=== PATIENT | male | born 1945 | race Caucasian/White ===

== ENCOUNTER 2024-09-06 12:15 | Inpatient (IN) | payer MEDICARE, BC ==
[~2024-09-06] VITALS: Ht 175.3 cm; Wt 67.1 kg
[2024-09-06 12:52] LABS: BASOPHILS # (AUTO) 0.1 K/uL (0.0-0.2); BASOPHILS % (AUTO) 0.8 % (0.0-2.0); EOSINOPHILS # (AUTO) 0.1 K/uL (0.0-0.7); HEMATOCRIT 47 % (39-51); HEMOGLOBIN 15.7 g/dL (13.5-17.5); LYMPHOCYTES # (AUTO) 1.2 K/uL (0.8-4.8); LYMPHOCYTES % (AUTO) 16.4 % (20.0-44.0); MEAN CORPUSCULAR HEMOGLOBIN 31 PG (26.0-33.0); MEAN CORPUSCULAR HGB CONC 34 g/dl (31.0-36.0); MEAN CORPUSCULAR VOLUME 91 fL (80-96); MONOCYTES # (AUTO) 0.9 K/uL (0.1-1.30); MONOCYTES % (AUTO) 12.5 % (2.0-12.0); NEUTROPHILS # (AUTO) 4.9 K/uL (1.8-8.9); NEUTROPHILS % (AUTO) 68.3 % (43.0-81.0); PLATELET COUNT (AUTO) 298 K/uL (150-450); RED BLOOD CELL COUNT(AUTO) 5.11 MIL/uL (4.5-6.0); RED CELL DISTRIBUTION WIDTH 14.3 % (11.5-15.0); WHITE BLOOD COUNT (AUTO) 7.2 K/uL (4.3-11.0)
[2024-09-06 13:08] LABS: ALANINE AMINOTRANSFERASE 18 U/L (12-78); ALBUMIN 2.8 g/dL (3.4-5.0); ALCOHOL, BLOOD < 3 mg/dL (0-10); ALKALINE PHOSPHATASE 77 U/L (46-116); ASPARTATE AMINOTRANSFERASE 17 U/L (15-37); BILIRUBIN,DIRECT 0.1 mg/dL (0.0-0.2); BILIRUBIN,TOTAL 0.5 mg/dL (0.2-1.0); CALCIUM, SERUM 9.7 mg/dL (8.5-10.1); CARBON DIOXIDE 32 mmol/L (21-32); CHLORIDE 109 mmol/L (98-107); CREATININE 0.9 mg/dL (0.6-1.3); GLUCOSE 90 mg/dL (74-106); POTASSIUM 4.2 mmol/L (3.5-5.1); SODIUM SERUM 146 mmol/L (136-145); TOTAL PROTEIN, SERUM 7.4 g/dL (6.4-8.2); UREA NITROGEN, BLOOD 23 mg/dL (7-18)
[2024-09-06 13:42] LABS: ACETAMINOPHEN <10 ug/ml (10-30)
[2024-09-06] MEDS ORDERED: MAGNESIUM HYDROXIDE 30 ML UDC PO PRN (16:30)
[2024-09-06] MEDS ORDERED: MAG HYDROX/AL HYDROX/SIMETH 30 ML UDC PO PRN (16:30)
[2024-09-06] MEDS ORDERED: LORAZEPAM 0.5 MG TABLET PO PRN (16:30)
[2024-09-06] MEDS ORDERED: LOSA50TA39 PO (17:39)
[2024-09-06] MEDS ORDERED: BUSP5TAB3 PO (17:39)
[2024-09-06] MEDS ORDERED: DIVA125C5 PO (17:39)
[2024-09-06] MEDS ORDERED: HALO1TAB PO (17:39)
[2024-09-06] MEDS ORDERED: AMLO-212 PO (17:39)
[2024-09-06] MEDS ORDERED: FINA1TAB11 PO (17:39)
[2024-09-06 20:17] VITALS: BP 108/84; TEMP 98.1; O2SAT 95
[2024-09-07] MEDS: TEMAZEPAM 7.5 MG CAPSULE PO PRN ×2 (00:18→22:14)
[2024-09-07 08:00] VITALS: BP 107/66; TEMP 97.8; O2SAT 97
[2024-09-07] MEDS: AMLODIPINE BESYLATE 5 MG TABLET PO SCH (09:00)
[2024-09-07] MEDS: LOSARTAN POTASSIUM 50 MG TABLET PO SCH (09:00)
[2024-09-07] MEDS ORDERED: QUETIAPINE FUMARATE 25 MG TABLET PO PRN (10:30)
[2024-09-07 10:33] LABS: CHOLESTEROL 168 mg/dL (<200); HDL CHOLESTEROL 39 mg/dL (40-60); LDL 114 mg/dL (0-99); TRIGLYCERIDES 60 mg/dL (30-150)
[2024-09-07 10:34] LABS: ALANINE AMINOTRANSFERASE 23 U/L (12-78); ALKALINE PHOSPHATASE 76 U/L (46-116); ASPARTATE AMINOTRANSFERASE 15 U/L (15-37); BILIRUBIN,TOTAL 0.5 mg/dL (0.2-1.0); CALCIUM, SERUM 9.9 mg/dL (8.5-10.1); CARBON DIOXIDE 32 mmol/L (21-32); CHLORIDE 110 mmol/L (98-107); CREATININE 1.5 mg/dL (0.6-1.3); GLUCOSE 144 mg/dL (74-106); POTASSIUM 4.2 mmol/L (3.5-5.1); SODIUM SERUM 146 mmol/L (136-145); TOTAL PROTEIN, SERUM 7.6 g/dL (6.4-8.2); UREA NITROGEN, BLOOD 32 mg/dL (7-18)
[2024-09-07] MEDS: DIVALPROEX SODIUM 125 MG CAP.SPRINK PO SCH (13:15)
[2024-09-07 16:00] VITALS: BP 118/74; TEMP 96.6; O2SAT 99
[2024-09-07 20:00] VITALS: BP 118/88; TEMP 98; O2SAT 95
[2024-09-07] MEDS: QUETIAPINE FUMARATE 25 MG TABLET PO SCH (20:40)
[2024-09-08 08:00] VITALS: BP 103/72; TEMP 97.7; O2SAT 96
[2024-09-08] MEDS: FINASTERIDE 1 MG PO SCH (08:18)
[2024-09-08 10:52] LABS: THYROID STIMULATING HORMONE 1.67 uIU/mL (0.358-3.74)
[2024-09-08 11:06] LABS: BASOPHILS # (AUTO) 0.1 K/uL (0.0-0.2); BASOPHILS % (AUTO) 0.8 % (0.0-2.0); EOSINOPHILS # (AUTO) 0.3 K/uL (0.0-0.7); EOSINOPHILS % (AUTO) 3.5 % (0.0-6.0); HEMATOCRIT 43 % (39-51); HEMOGLOBIN 14.6 g/dL (13.5-17.5); LYMPHOCYTES # (AUTO) 1.7 K/uL (0.8-4.8); LYMPHOCYTES % (AUTO) 23.3 % (20.0-44.0); MEAN CORPUSCULAR HEMOGLOBIN 31 PG (26.0-33.0); MEAN CORPUSCULAR HGB CONC 34 g/dl (31.0-36.0); MEAN CORPUSCULAR VOLUME 90 fL (80-96); MONOCYTES # (AUTO) 0.8 K/uL (0.1-1.30); MONOCYTES % (AUTO) 10.4 % (2.0-12.0); NEUTROPHILS # (AUTO) 4.6 K/uL (1.8-8.9); PLATELET COUNT (AUTO) 268 K/uL (150-450); RED CELL DISTRIBUTION WIDTH 14.2 % (11.5-15.0); WHITE BLOOD COUNT (AUTO) 7.4 K/uL (4.3-11.0)
[2024-09-08 11:22] LABS: ALANINE AMINOTRANSFERASE 20 U/L (12-78); ALBUMIN 2.9 g/dL (3.4-5.0); ALKALINE PHOSPHATASE 74 U/L (46-116); ASPARTATE AMINOTRANSFERASE 25 U/L (15-37); BILIRUBIN,TOTAL 0.6 mg/dL (0.2-1.0); CALCIUM, SERUM 9.7 mg/dL (8.5-10.1); CARBON DIOXIDE 27 mmol/L (21-32); CHLORIDE 108 mmol/L (98-107); CREATININE 1.3 mg/dL (0.6-1.3); GLUCOSE 114 mg/dL (74-106); MAGNESIUM 2.3 mg/dL (1.8-2.4); PHOSPHORUS 2.6 mg/dL (2.5-4.9); POTASSIUM 4.3 mmol/L (3.5-5.1); SODIUM SERUM 144 mmol/L (136-145); TOTAL PROTEIN, SERUM 7.4 g/dL (6.4-8.2); UREA NITROGEN, BLOOD 37 mg/dL (7-18)
[2024-09-08 16:00] VITALS: BP 105/81; TEMP 97.7; O2SAT 100
[2024-09-08 20:00] VITALS: BP 117/80; TEMP 98; O2SAT 99
[2024-09-09 06:07] LABS: FOLIC ACID 8.2 ng/mL (>3.0)
[2024-09-09 07:24] LABS: BASOPHILS # (AUTO) 0.1 K/uL (0.0-0.2); BASOPHILS % (AUTO) 0.8 % (0.0-2.0); EOSINOPHILS # (AUTO) 0.3 K/uL (0.0-0.7); EOSINOPHILS % (AUTO) 4.2 % (0.0-6.0); HEMATOCRIT 38 % (39-51); HEMOGLOBIN 12.9 g/dL (13.5-17.5); LYMPHOCYTES % (AUTO) 25.7 % (20.0-44.0); MEAN CORPUSCULAR HEMOGLOBIN 31 PG (26.0-33.0); MEAN CORPUSCULAR HGB CONC 34 g/dl (31.0-36.0); MEAN CORPUSCULAR VOLUME 89 fL (80-96); MONOCYTES # (AUTO) 0.9 K/uL (0.1-1.30); MONOCYTES % (AUTO) 11.1 % (2.0-12.0); NEUTROPHILS # (AUTO) 4.5 K/uL (1.8-8.9); NEUTROPHILS % (AUTO) 58.2 % (43.0-81.0); PLATELET COUNT (AUTO) 227 K/uL (150-450); RED BLOOD CELL COUNT(AUTO) 4.23 MIL/uL (4.5-6.0); RED CELL DISTRIBUTION WIDTH 14.3 % (11.5-15.0); WHITE BLOOD COUNT (AUTO) 7.8 K/uL (4.3-11.0)
[2024-09-09 07:45] LABS: MAGNESIUM 1.9 mg/dL (1.8-2.4); PHOSPHORUS 2.4 mg/dL (2.5-4.9)
[2024-09-09 08:00] VITALS: BP 119/63; TEMP 97.6; O2SAT 95
[2024-09-09 10:42] LABS: EOSINOPHILS % (MANUAL) 3 % (0-4); LYMPHOCYTES % (MANUAL) 29 % (16-48); MONOCYTES % (MANUAL) 6 % (0-11.0); MYELOCYTES % 1 % (0-0); NEUTROPHILS % (MANUAL) 61 (42-76)
[2024-09-09 10:44] LABS: OVALOCYTES 1+; PLATELET ESTIMATE ADEQUATE
[2024-09-09 16:00] VITALS: BP 119/92; TEMP 97.9; O2SAT 95
[2024-09-09] MEDS: LORAZEPAM 0.5 MG TABLET PO PRN (16:20)
[2024-09-09 20:40] VITALS: BP 103/71; TEMP 98; O2SAT 100
[2024-09-10 08:00] VITALS: BP 113/77; TEMP 98.6; O2SAT 98
[2024-09-10] MEDS: Z GUARD REMEDY 4 OZ OINT TP PRN (08:32)
[2024-09-10] MEDS: ENSURE ENLIVE CHOC 237 ML CAN PO SCH (08:42)
[2024-09-10 16:00] VITALS: BP 119/76; TEMP 97.6; O2SAT 96
[2024-09-10] MEDS: DIVALPROEX SODIUM 125 MG CAP.SPRINK PO SCH (16:46)
[2024-09-10 20:00] VITALS: BP 131/81; TEMP 97.9; O2SAT 99
[2024-09-11 08:00] VITALS: BP 69/58; TEMP 98.1; O2SAT 95
[2024-09-11 16:00] VITALS: BP 115/85; TEMP 98.2; O2SAT 100
[2024-09-11 20:33] VITALS: BP 135/78; TEMP 98.3; O2SAT 100
[2024-09-12 08:00] VITALS: BP 94/50; TEMP 97.7; O2SAT 99
[2024-09-12 14:11] LABS: VITAMIN B1 THIAMINE,WB 91.7 nmol/L (66.5-200.0)
[2024-09-12 16:00] VITALS: BP 98/63; TEMP 98.6; O2SAT 97
[2024-09-12 21:34] VITALS: BP 119/72; TEMP 98.2; O2SAT 100
[2024-09-13 08:00] VITALS: BP 114/71; TEMP 98.7; O2SAT 98
[2024-09-13] MEDS: DIVALPROEX SODIUM 125 MG CAP.SPRINK PO SCH (13:53)
[2024-09-13 16:00] VITALS: BP 121/83; TEMP 98.1; O2SAT 100
[2024-09-13 20:00] VITALS: BP 110/85; TEMP 97.7; O2SAT 95
[2024-09-13] MEDS: QUETIAPINE FUMARATE 25 MG TABLET PO SCH (20:01)
[2024-09-13] MEDS: ACETAMINOPHEN 325 MG TABLET PO PRN (20:56)
[2024-09-14 08:00] VITALS: BP 108/72; TEMP 97.7; O2SAT 97
[2024-09-14 16:00] VITALS: BP 107/72; TEMP 98.1; O2SAT 98
[2024-09-14] MEDS: OLANZAPINE 10 MG VIAL IM STA (17:44)
[2024-09-14 20:00] VITALS: BP 129/86; TEMP 98; O2SAT 98
[2024-09-14] MEDS: DIVALPROEX SODIUM 500 MG TABLET.DR PO SCH (20:13)
[2024-09-15 07:34] LABS: BASOPHILS # (AUTO) 0.1 K/uL (0.0-0.2); BASOPHILS % (AUTO) 1.3 % (0.0-2.0); EOSINOPHILS # (AUTO) 0.3 K/uL (0.0-0.7); EOSINOPHILS % (AUTO) 4.2 % (0.0-6.0); HEMATOCRIT 33 % (39-51); HEMOGLOBIN 11.1 g/dL (13.5-17.5); LYMPHOCYTES # (AUTO) 1.6 K/uL (0.8-4.8); LYMPHOCYTES % (AUTO) 24.9 % (20.0-44.0); MEAN CORPUSCULAR HEMOGLOBIN 30 PG (26.0-33.0); MEAN CORPUSCULAR HGB CONC 34 g/dl (31.0-36.0); MEAN CORPUSCULAR VOLUME 90 fL (80-96); MONOCYTES # (AUTO) 0.9 K/uL (0.1-1.30); MONOCYTES % (AUTO) 14.5 % (2.0-12.0); NEUTROPHILS # (AUTO) 3.5 K/uL (1.8-8.9); NEUTROPHILS % (AUTO) 55.1 % (43.0-81.0); PLATELET COUNT (AUTO) 292 K/uL (150-450); RED BLOOD CELL COUNT(AUTO) 3.64 MIL/uL (4.5-6.0); RED CELL DISTRIBUTION WIDTH 14.1 % (11.5-15.0); WHITE BLOOD COUNT (AUTO) 6.3 K/uL (4.3-11.0)
[2024-09-15 07:46] LABS: CALCIUM, SERUM 9.7 mg/dL (8.5-10.1); CARBON DIOXIDE 31 mmol/L (21-32); CHLORIDE 105 mmol/L (98-107); CREATININE 0.9 mg/dL (0.6-1.3); GLUCOSE 85 mg/dL (74-106); SODIUM SERUM 143 mmol/L (136-145); UREA NITROGEN, BLOOD 19 mg/dL (7-18)
[2024-09-15 08:00] VITALS: BP 155/76; TEMP 98.1; O2SAT 98
[2024-09-15 08:46] LABS: ANISOCYTOSIS 1+; BAND % (MANUAL) 1 % (0.0-5.0); EOSINOPHILS % (MANUAL) 2 % (0-4); LYMPHOCYTES % (MANUAL) 32 % (16-48); MONOCYTES % (MANUAL) 13 % (0-11.0); MYELOCYTES % 2 % (0-0); NEUTROPHILS % (MANUAL) 50 (42-76); OVALOCYTES 1+; PLATELET ESTIMATE ADEQUATE
[2024-09-15 09:05] LABS: NT-PRO BNP 406 pg/mL (0-125)
[2024-09-15] MEDS: DOXYCYCLINE HYCLATE (100 MG) 100 MG TABLET PO SCH (12:55)
[2024-09-15 16:09] VITALS: BP 101/67; TEMP 98.1; O2SAT 96
[2024-09-15 19:51] VITALS: BP 150/77; TEMP 98.4; O2SAT 97
[2024-09-16 08:00] VITALS: BP 102/60; TEMP 97.9; O2SAT 98
[2024-09-16] MEDS: QUETIAPINE FUMARATE 25 MG TABLET PO SCH (08:11)
[2024-09-16 16:00] VITALS: BP 106/63; TEMP 97.4; O2SAT 96
[2024-09-16 20:00] VITALS: BP 135/93; TEMP 97.8; O2SAT 98
[2024-09-17 08:00] VITALS: BP 130/76; TEMP 97.8; O2SAT 98
[2024-09-17 16:00] VITALS: BP 116/75; TEMP 98; O2SAT 98
[2024-09-17 20:00] VITALS: BP 122/83; TEMP 98.4; O2SAT 98
[2024-09-17] MEDS: DIVALPROEX SODIUM 125 MG CAP.SPRINK PO SCH (20:14)
[2024-09-18 09:16] VITALS: BP 114/62; TEMP 97.5; O2SAT 97
[2024-09-18 16:00] VITALS: BP 123/84; TEMP 97.4; O2SAT 96
[2024-09-18 20:00] VITALS: BP 139/81; TEMP 97.9; O2SAT 98
[2024-09-19 08:00] VITALS: BP 122/84; TEMP 97.8; O2SAT 96
[2024-09-19 16:10] VITALS: BP 106/91; TEMP 97.8; O2SAT 96
[2024-09-19 20:00] VITALS: BP 142/90; TEMP 97.9; O2SAT 96
[2024-09-20 08:00] VITALS: BP 158/96; TEMP 98.1; O2SAT 95
[2024-09-20 15:55] VITALS: BP 130/90; TEMP 97.9; O2SAT 100
[2024-09-20 21:06] VITALS: BP 139/94; TEMP 97.8; O2SAT 98
[2024-09-21 08:00] VITALS: BP 109/71; TEMP 98.6; O2SAT 100
[2024-09-21 08:59] VITALS: BP 109/71
[2024-09-22] MEDS ORDERED: LORA-258 PO (09:34)
[2024-09-22] MEDS ORDERED: NA P133E RC (09:34)
[2024-09-22] MEDS ORDERED: CRAN300T PO (09:34)
[2024-09-22] MEDS ORDERED: MAGN400O6 PO (09:34)
[2024-09-22] MEDS ORDERED: BISA10SU11 RC (09:34)
[2024-09-22] MEDS ORDERED: QUET25TA PO ×2 (09:34)
[2024-09-22] MEDS ORDERED: ACET325T53 PO (09:34)
[2024-09-22] MEDS ORDERED: LACT-58 PO (09:34)
[2024-09-22] MEDS ORDERED: DOCU100C36 PO (09:34)
[2024-09-22] MEDS ORDERED: TEMA7.5C12 PO (09:34)
[2024-09-22] MEDS ORDERED: DIVA-78 PO (09:34)
== END 2024-09-21 14:17 | DRG 885 ==
LOC: ER 12:32 → GPS 15:38
PROVIDERS: ADMIT Psychiatry & Neurology Psychosomatic Medicine; ATTEND Nurse Practitioner Family
DX: F29 Unspecified psychosis not due to a substance or known physiological condition (principal); N17.9 Acute kidney failure, unspecified; E87.0 Hyperosmolality and hypernatremia; L03.116 Cellulitis of left lower limb; F02.82 Dementia in other diseases classified elsewhere, unspecified severity, with psychotic disturbance; E44.0 Moderate protein-calorie malnutrition; F02.83 Dementia in other diseases classified elsewhere, unspecified severity, with mood disturbance; I10 Essential (primary) hypertension; N40.0 Benign prostatic hyperplasia without lower urinary tract symptoms; E88.09 Other disorders of plasma-protein metabolism, not elsewhere classified; M89.8X9 Other specified disorders of bone, unspecified site; F39 Unspecified mood [affective] disorder; Z73.6 Limitation of activities due to disability; Z91.199 Patient's noncompliance with other medical treatment and regimen due to unspecified reason; G30.9 Alzheimer's disease, unspecified; Z68.21 Body mass index [BMI] 21.0-21.9, adult; Z20.822 Contact with and (suspected) exposure to COVID-19; G31.09 Other frontotemporal neurocognitive disorder
CPT/HCPCS: 36415; 70450-TC; 73630-TC; 76770-TC; 80048-TC; 80053-TC; 80061-TC; 80076-TC; 80164-TC; 82607-TC; 83735-TC; 83880; 83921; 84100-TC; 84425; 84443-TC; 85025-TC; 97110-TC; 97112-TC; 97116-TC; 97530-TC; G0480; J3490

== ENCOUNTER 2024-09-21 21:58 | Inpatient (IN) | payer MEDICARE, BC ==
[~2024-09-21] VITALS: Ht 167.6 cm; Wt 68.0 kg
[~2024-09-21 21:58] MED LIST: AMLO-212 PO; BUSP5TAB3 PO; DIVA125C5 PO; FINA1TAB11 PO; HALO1TAB PO; LOSA50TA39 PO
[2024-09-21 23:02] LABS: BASOPHILS # (AUTO) 0.1 K/uL (0.0-0.2); BASOPHILS % (AUTO) 1.1 % (0.0-2.0); EOSINOPHILS # (AUTO) 0.2 K/uL (0.0-0.7); EOSINOPHILS % (AUTO) 2.6 % (0.0-6.0); HEMATOCRIT 34 % (39-51); HEMOGLOBIN 11.5 g/dL (13.5-17.5); LYMPHOCYTES # (AUTO) 1.4 K/uL (0.8-4.8); LYMPHOCYTES % (AUTO) 15.6 % (20.0-44.0); MEAN CORPUSCULAR HEMOGLOBIN 30 PG (26.0-33.0); MEAN CORPUSCULAR HGB CONC 33 g/dl (31.0-36.0); MEAN CORPUSCULAR VOLUME 90 fL (80-96); MONOCYTES # (AUTO) 0.6 K/uL (0.1-1.30); MONOCYTES % (AUTO) 6.7 % (2.0-12.0); NEUTROPHILS # (AUTO) 6.8 K/uL (1.8-8.9); PLATELET COUNT (AUTO) 262 K/uL (150-450); RED BLOOD CELL COUNT(AUTO) 3.81 MIL/uL (4.5-6.0); RED CELL DISTRIBUTION WIDTH 14.3 % (11.5-15.0); WHITE BLOOD COUNT (AUTO) 9.2 K/uL (4.3-11.0)
[2024-09-21 23:15] LABS: CALCIUM, SERUM 9.3 mg/dL (8.5-10.1); CARBON DIOXIDE 32 mmol/L (21-32); CHLORIDE 107 mmol/L (98-107); CREATININE 1.7 mg/dL (0.6-1.3); GLUCOSE 114 mg/dL (74-106); POTASSIUM 3.8 mmol/L (3.5-5.1); SODIUM SERUM 146 mmol/L (136-145); UREA NITROGEN, BLOOD 32 mg/dL (7-18)
[2024-09-21 23:21] LABS: ALANINE AMINOTRANSFERASE 18 U/L (12-78); ALBUMIN 2.6 g/dL (3.4-5.0); ALCOHOL, BLOOD < 3 mg/dL (0-10); ALKALINE PHOSPHATASE 65 U/L (46-116); ASPARTATE AMINOTRANSFERASE 18 U/L (15-37); BILIRUBIN,DIRECT 0.1 mg/dL (0.0-0.2); BILIRUBIN,TOTAL 0.4 mg/dL (0.2-1.0); TOTAL PROTEIN, SERUM 6.6 g/dL (6.4-8.2)
[2024-09-21 23:22] LABS: ACETAMINOPHEN <10 ug/ml (10-30); SALICYLATE 1.1 mg/dL (2.8-20.0)
[2024-09-21] MEDS: IV NS 0.9% 1,000 ML BAG IV ONE (23:28)
[2024-09-22] MEDS ORDERED: Z GUARD REMEDY 4 OZ OINT TP PRN (01:30)
[2024-09-22] MEDS ORDERED: ONDANSETRON HCL/PF 4 MG/2 ML VIAL IVP PRN (01:30)
[2024-09-22] MEDS ORDERED: MAGNESIUM HYDROXIDE 30 ML UDC PO PRN ×2 (01:30→13:30)
[2024-09-22] MEDS ORDERED: MAG HYDROX/AL HYDROX/SIMETH 30 ML UDC PO PRN (01:30)
[2024-09-22] MEDS ORDERED: ACETAMINOPHEN 325 MG TABLET PO PRN ×2 (01:30→13:30)
[2024-09-22 02:40] VITALS: BP 136/70; TEMP 98; O2SAT 97
[2024-09-22] MEDS: IV D5W 1,000 ML IV SCH (03:53)
[2024-09-22 07:00] VITALS: BP 161/78; TEMP 97.7; O2SAT 95
[2024-09-22 07:52] LABS: BASOPHILS # (AUTO) 0.1 K/uL (0.0-0.2); EOSINOPHILS # (AUTO) 0.3 K/uL (0.0-0.7); EOSINOPHILS % (AUTO) 4.5 % (0.0-6.0); HEMATOCRIT 34 % (39-51); HEMOGLOBIN 11.2 g/dL (13.5-17.5); LYMPHOCYTES # (AUTO) 1.4 K/uL (0.8-4.8); LYMPHOCYTES % (AUTO) 22.5 % (20.0-44.0); MEAN CORPUSCULAR HEMOGLOBIN 30 PG (26.0-33.0); MEAN CORPUSCULAR HGB CONC 33 g/dl (31.0-36.0); MEAN CORPUSCULAR VOLUME 91 fL (80-96); MONOCYTES # (AUTO) 0.6 K/uL (0.1-1.30); MONOCYTES % (AUTO) 10.1 % (2.0-12.0); NEUTROPHILS # (AUTO) 3.8 K/uL (1.8-8.9); NEUTROPHILS % (AUTO) 61.9 % (43.0-81.0); PLATELET COUNT (AUTO) 252 K/uL (150-450); RED CELL DISTRIBUTION WIDTH 13.9 % (11.5-15.0); WHITE BLOOD COUNT (AUTO) 6.1 K/uL (4.3-11.0)
[2024-09-22 08:00] VITALS: BP 122/70; TEMP 97.9; O2SAT 98
[2024-09-22 08:09] LABS: CALCIUM, SERUM 9.2 mg/dL (8.5-10.1); CARBON DIOXIDE 24 mmol/L (21-32); CHLORIDE 107 mmol/L (98-107); GLUCOSE 86 mg/dL (74-106); MAGNESIUM 1.8 mg/dL (1.8-2.4); PHOSPHORUS 2.3 mg/dL (2.5-4.9); POTASSIUM 3.9 mmol/L (3.5-5.1); SODIUM SERUM 141 mmol/L (136-145); UREA NITROGEN, BLOOD 24 mg/dL (7-18)
[2024-09-22] MEDS: LOSARTAN POTASSIUM 50 MG TABLET PO SCH (08:45)
[2024-09-22] MEDS: AMLODIPINE BESYLATE 5 MG TABLET PO SCH (08:45)
[2024-09-22] MEDS ORDERED: QUET25TA PO ×2 (09:34)
[2024-09-22] MEDS ORDERED: DOCU100C36 PO (09:34)
[2024-09-22] MEDS ORDERED: LORA-258 PO (09:34)
[2024-09-22] MEDS ORDERED: CRAN300T PO (09:34)
[2024-09-22] MEDS ORDERED: MAGN400O6 PO (09:34)
[2024-09-22] MEDS ORDERED: NA P133E RC (09:34)
[2024-09-22] MEDS ORDERED: LACT-58 PO (09:34)
[2024-09-22] MEDS ORDERED: ACET325T53 PO (09:34)
[2024-09-22] MEDS ORDERED: TEMA7.5C12 PO (09:34)
[2024-09-22] MEDS ORDERED: DIVA-78 PO (09:34)
[2024-09-22] MEDS ORDERED: BISA10SU11 RC (09:34)
[2024-09-22 11:30] VITALS: BP 134/74; TEMP 97.4; O2SAT 97
[2024-09-22] MEDS: DIVALPROEX SODIUM 125 MG CAP.SPRINK PO SCH (12:25)
[2024-09-22] MEDS: HALOPERIDOL 5 MG TABLET PO SCH (12:26)
[2024-09-22] MEDS ORDERED: BISACODYL SUPP (10 MG) 10 MG/SUPP.RECT SUPP.RECT RC PRN (13:30)
[2024-09-22] MEDS: FINASTERIDE (5 MG) 5 MG TABLET PO SCH (14:59)
[2024-09-22] MEDS: DIVALPROEX SODIUM 250 MG TABLET.DR PO SCH (15:10)
[2024-09-22 16:00] VITALS: BP_SYST 132; BP_SYST 144; BP_DIAS 111; BP_DIAS 85; TEMP 97.4; TEMP 97.5; TEMP 98.2; O2SAT 96; O2SAT 99
[2024-09-22] MEDS: K PHOS NEUTRAL 250 MG TABLET PO ONE (16:08)
[2024-09-22] MEDS: ENSURE ENLIVE 237 ML LIQUID (VANILLA) PO SCH (17:21)
[2024-09-22] MEDS: ENOXAPARIN SODIUM 40 MG/0.4 ML DISP.SYRIN SQ SCH (20:55)
[2024-09-23 08:00] VITALS: BP 119/82; TEMP 98; O2SAT 99
[2024-09-23] MEDS: DOCUSATE SODIUM 100 MG CAPSULE PO SCH (09:27)
[2024-09-23] MEDS: LORAZEPAM 0.5 MG TABLET PO PRN (12:44)
[2024-09-23 12:46] LABS: BASOPHILS # (AUTO) 0.1 K/uL (0.0-0.2); BASOPHILS % (AUTO) 0.9 % (0.0-2.0); EOSINOPHILS # (AUTO) 0.1 K/uL (0.0-0.7); EOSINOPHILS % (AUTO) 0.9 % (0.0-6.0); HEMATOCRIT 38 % (39-51); HEMOGLOBIN 12.8 g/dL (13.5-17.5); LYMPHOCYTES # (AUTO) 0.9 K/uL (0.8-4.8); LYMPHOCYTES % (AUTO) 14.7 % (20.0-44.0); MEAN CORPUSCULAR HEMOGLOBIN 31 PG (26.0-33.0); MEAN CORPUSCULAR HGB CONC 34 g/dl (31.0-36.0); MEAN CORPUSCULAR VOLUME 90 fL (80-96); MONOCYTES # (AUTO) 0.5 K/uL (0.1-1.30); NEUTROPHILS # (AUTO) 4.8 K/uL (1.8-8.9); NEUTROPHILS % (AUTO) 75.5 % (43.0-81.0); PLATELET COUNT (AUTO) 252 K/uL (150-450); RED CELL DISTRIBUTION WIDTH 14.4 % (11.5-15.0); WHITE BLOOD COUNT (AUTO) 6.3 K/uL (4.3-11.0)
[2024-09-23 12:59] LABS: CALCIUM, SERUM 9.1 mg/dL (8.5-10.1); CARBON DIOXIDE 28 mmol/L (21-32); CHLORIDE 107 mmol/L (98-107); CREATININE 0.9 mg/dL (0.6-1.3); GLUCOSE 125 mg/dL (74-106); POTASSIUM 3.5 mmol/L (3.5-5.1); SODIUM SERUM 143 mmol/L (136-145); UREA NITROGEN, BLOOD 14 mg/dL (7-18)
[2024-09-23 16:00] VITALS: BP 131/79; TEMP 97.5; O2SAT 97
[2024-09-23 20:00] VITALS: BP 119/64; TEMP 98; O2SAT 98
[2024-09-23 20:15] VITALS: BP 119/64; TEMP 98; O2SAT 98
[2024-09-24 08:00] VITALS: BP 112/60; TEMP 98.2; O2SAT 98
[2024-09-24 09:14] LABS: BASOPHILS # (AUTO) 0.1 K/uL (0.0-0.2); BASOPHILS % (AUTO) 1.1 % (0.0-2.0); EOSINOPHILS # (AUTO) 0.2 K/uL (0.0-0.7); EOSINOPHILS % (AUTO) 3.9 % (0.0-6.0); HEMATOCRIT 36 % (39-51); LYMPHOCYTES # (AUTO) 1.3 K/uL (0.8-4.8); LYMPHOCYTES % (AUTO) 22.1 % (20.0-44.0); MEAN CORPUSCULAR HEMOGLOBIN 30 PG (26.0-33.0); MEAN CORPUSCULAR HGB CONC 34 g/dl (31.0-36.0); MEAN CORPUSCULAR VOLUME 90 fL (80-96); MONOCYTES # (AUTO) 0.5 K/uL (0.1-1.30); MONOCYTES % (AUTO) 8.8 % (2.0-12.0); NEUTROPHILS # (AUTO) 3.6 K/uL (1.8-8.9); NEUTROPHILS % (AUTO) 64.1 % (43.0-81.0); PLATELET COUNT (AUTO) 206 K/uL (150-450); RED BLOOD CELL COUNT(AUTO) 3.98 MIL/uL (4.5-6.0); RED CELL DISTRIBUTION WIDTH 13.9 % (11.5-15.0); WHITE BLOOD COUNT (AUTO) 5.7 K/uL (4.3-11.0)
[2024-09-24 09:24] LABS: CALCIUM, SERUM 9.2 mg/dL (8.5-10.1); CARBON DIOXIDE 30 mmol/L (21-32); CHLORIDE 110 mmol/L (98-107); CREATININE 0.8 mg/dL (0.6-1.3); GLUCOSE 117 mg/dL (74-106); POTASSIUM 3.9 mmol/L (3.5-5.1); SODIUM SERUM 146 mmol/L (136-145); UREA NITROGEN, BLOOD 13 mg/dL (7-18)
[2024-09-24] MEDS: NA PHOS,M-B/NA PHOS,DI-BA 1 EA ENEMA RC SCH (09:40)
[2024-09-24] MEDS: DIVALPROEX SODIUM 250 MG TABLET.DR PO SCH (13:44)
[2024-09-24 16:00] VITALS: BP 116/68; TEMP 97.7; O2SAT 100
[2024-09-24 20:00] VITALS: BP 157/80; TEMP 98.7; O2SAT 90
[2024-09-25 08:00] VITALS: BP 137/83; TEMP 97.6; O2SAT 100
[2024-09-25 16:00] VITALS: BP 128/75; TEMP 98.4; O2SAT 94
[2024-09-25 22:07] VITALS: BP 147/89; TEMP 98.4; O2SAT 95
[2024-09-26 08:00] VITALS: BP 147/94; TEMP 98.1; O2SAT 94
[2024-09-26 16:00] VITALS: BP 115/86; TEMP 97.9
[2024-09-26 20:00] VITALS: BP 127/67; TEMP 98.1; O2SAT 97
[2024-09-26 20:07] VITALS: BP 122/67; TEMP 98.1; O2SAT 97
[2024-09-27 08:26] VITALS: BP 127/73; TEMP 97.5; O2SAT 98
[2024-09-27 16:03] VITALS: BP 109/59; TEMP 98.2; O2SAT 98
[2024-09-27 20:00] VITALS: BP 140/73; TEMP 98.5; O2SAT 95
[2024-09-27] MEDS: HALOPERIDOL 5 MG TABLET PO SCH (21:09)
[2024-09-28 06:23] LABS: BASOPHILS % (AUTO) 0.8 % (0.0-2.0); EOSINOPHILS # (AUTO) 0.3 K/uL (0.0-0.7); EOSINOPHILS % (AUTO) 5.1 % (0.0-6.0); HEMATOCRIT 38 % (39-51); HEMOGLOBIN 12.7 g/dL (13.5-17.5); LYMPHOCYTES # (AUTO) 1.6 K/uL (0.8-4.8); LYMPHOCYTES % (AUTO) 29.8 % (20.0-44.0); MEAN CORPUSCULAR HEMOGLOBIN 31 PG (26.0-33.0); MEAN CORPUSCULAR HGB CONC 34 g/dl (31.0-36.0); MEAN CORPUSCULAR VOLUME 91 fL (80-96); MONOCYTES # (AUTO) 0.8 K/uL (0.1-1.30); MONOCYTES % (AUTO) 13.9 % (2.0-12.0); NEUTROPHILS # (AUTO) 2.8 K/uL (1.8-8.9); NEUTROPHILS % (AUTO) 50.4 % (43.0-81.0); PLATELET COUNT (AUTO) 215 K/uL (150-450); RED BLOOD CELL COUNT(AUTO) 4.13 MIL/uL (4.5-6.0); WHITE BLOOD COUNT (AUTO) 5.5 K/uL (4.3-11.0)
[2024-09-28 06:27] LABS: ALANINE AMINOTRANSFERASE 23 U/L (12-78); ALBUMIN 2.7 g/dL (3.4-5.0); ALKALINE PHOSPHATASE 67 U/L (46-116); ASPARTATE AMINOTRANSFERASE 16 U/L (15-37); BILIRUBIN,TOTAL 0.4 mg/dL (0.2-1.0); CALCIUM, SERUM 9.6 mg/dL (8.5-10.1); CARBON DIOXIDE 32 mmol/L (21-32); CHLORIDE 106 mmol/L (98-107); CREATININE 0.9 mg/dL (0.6-1.3); GLUCOSE 84 mg/dL (74-106); POTASSIUM 4.1 mmol/L (3.5-5.1); SODIUM SERUM 142 mmol/L (136-145); TOTAL PROTEIN, SERUM 7.1 g/dL (6.4-8.2); UREA NITROGEN, BLOOD 23 mg/dL (7-18)
[2024-09-28 06:32] LABS: VALPROIC ACID 74 ug/mL (50-100)
[2024-09-28 08:00] VITALS: BP 130/77; TEMP 98.4; O2SAT 94
[2024-09-28 16:00] VITALS: BP 106/66; TEMP 98.4; O2SAT 99
== END 2024-09-28 16:25 | DRG 640 ==
LOC: ER 22:00 → MED 09-22 01:33
PROVIDERS: ADMIT Nurse Practitioner Acute Care; ATTEND Nurse Practitioner Family
DX: E86.0 Dehydration (principal); N17.0 Acute kidney failure with tubular necrosis; F02.83 Dementia in other diseases classified elsewhere, unspecified severity, with mood disturbance; F02.82 Dementia in other diseases classified elsewhere, unspecified severity, with psychotic disturbance; E87.0 Hyperosmolality and hypernatremia; Z20.822 Contact with and (suspected) exposure to COVID-19; G30.9 Alzheimer's disease, unspecified; N40.0 Benign prostatic hyperplasia without lower urinary tract symptoms; I10 Essential (primary) hypertension; F29 Unspecified psychosis not due to a substance or known physiological condition; F39 Unspecified mood [affective] disorder
CPT/HCPCS: 36415; 80048-TC; 80053-TC; 80076-TC; 80164-TC; 83735-TC; 84100-TC; 85025-TC; 87081-TC; 97110-TC; 97116-TC; 97530-TC; A4223; G0378; G0480; J1650; J7070